=== PATIENT | female | born 1955 | race Caucasian/White ===

== ENCOUNTER 2017-07-03 19:27 | Emergency (ER) | payer BC ==
[~2017-07-03] VITALS: Ht 175.3 cm; Wt 84.5 kg
[2017-07-03] MEDS ORDERED: ONDANSETRON 2MG/ML, 2ML ONE (21:20)
[2017-07-03] MEDS ORDERED: MORPHINE SULFATE 4 MG/ML, 1ML ONE ×2 (21:20→22:00)
[2017-07-03] MEDS: MORPHINE SULFATE 4 MG/ML, 1ML IVPush PRN ×2 (21:21→22:47)
[2017-07-03] MEDS ORDERED: SODIUM CHLORIDE FLUSH 10ML SYR IVF ONE (21:30)
[2017-07-03] MEDS ORDERED: ONDANSETRON 2MG/ML, 2ML IVPush ONE (21:30)
[2017-07-03 21:33] VITALS: BP 120/68
[2017-07-03] MEDS ORDERED: BUPIVACAINE/PF 0.5% ONE (21:59)
[2017-07-03] MEDS ORDERED: BUPIVACAINE/PF 0.5% INFIL ONE (22:00)
== END 2017-07-04 00:07 | disposition home or self-care (01) ==
LOC: ED 23:55
DX: S52.611A Displaced fracture of right ulna styloid process, initial encounter for closed fracture (principal); S52.511A Displaced fracture of right radial styloid process, initial encounter for closed fracture; G89.11 Acute pain due to trauma; W19.XXXA Unspecified fall, initial encounter; Y93.41 Activity, dancing; Y92.89 Other specified places as the place of occurrence of the external cause; Y99.8 Other external cause status
CPT/HCPCS: 25605; 72110; 73110; 96374; 96375; 96376; 99284; J2405